=== PATIENT | female | born 1985 | race Caucasian/White ===

== ENCOUNTER 2016-05-06 00:20 | Emergency (ER) | payer OTHER ==
[~2016-05-06] VITALS: Ht 170.2 cm; Wt 68.0 kg
[2016-05-06 00:42] VITALS: BP 120/68
--- NOTE | 2016-05-06 00:49 | PHYS DOC ---
Adult General Chief Complaint Chief Complaint: FINGER INJURY HPI HPI Patient is a 31 year old female who presents with left pinky finger injury, patient states she was putting away an x-ray machine at her job when the machine rolled over her left pinky finger. Review of Systems Review of Systems Constitutional: Denies fever or chills [] Musculoskeletal: Left pinky finger injury Integument: Denies rash or skin lesions [] Neurologic: Denies headache, focal weakness or sensory changes [] Endocrine: Denies polyuria or polydipsia [] Current Medications Current Medications Current Medications Medications (Trade) Dose Ordered Sig/Zohaib Start Time Stop Time Status Last Admin Dose Admin Diphtheria/ Tetanus/Acell Pertussis (Boostrix) 0.5 ml ONCE ONCE 05/06/16 00:45 05/06/16 00:46 UNV Physical Exam Physical Exam Constitutional: Well developed, well nourished, no acute distress, non-toxic appearance. [] Skin: Warm, dry, no erythema, no rash. [] Back: No tenderness, no CVA tenderness. [] Extremities: Distal end of the left pinky finger with small amount of superficial laceration around the nailbed. The nail is still attached. Tenderness on palpation of the tip of the left pinky finger. Bruises noted on the ventral aspect distal end of the left pinky finger. Full range of motion to the left pinky finger MIP PIP and DIP joints with adequate flexion and extension of the finger at the MIP PIP and DIP joints. Adequate ulnar sensation to the left pinky finger. Cap refill less than 2 seconds the left pinky finger. Sensation intact to the left pinky finger. +2 left radial pulse Neurologic: Alert and oriented X 3, normal motor function, normal sensory function, no focal deficits noted. [] Psychologic: Affect normal, judgement normal, mood normal. [] EKG EKG [] Radiology/Procedures Radiology/Procedures [] Course & Med Decision Making Course & Med Decision Making Pertinent Labs and Imaging studies reviewed. (See chart for details) Patient is in the ED with left pinky finger injury. X-rays of the left pinky finger interpreted by Dr. Park are negative for any acute findings. Patient was given tetanus in the ED. Neosporin applied to the superficial lacerations on the finger. Finger splint was applied to the left pinky finger by the ED RN, neurovascular exam done by me post splint application is normal, cap refill less than 2 seconds. Ice elevation encouraged. Follow-up with ortho in one week. Dragon Disclaimer Dragon Disclaimer This electronic medical record was generated, in whole or in part, using a voice recognition dictation system. Departure Departure Impression: Primary Impression: Finger contusion Additional Impression: Finger laceration Disposition: 01 HOME, SELF-CARE Condition: STABLE Referrals: RAZIA MURILLO MD See him in one week if pain continues Patient Instructions: Contusion Additional Instructions: You were seen for finger contusion. Please apply ice and elevate the extremity. Apply Neosporin to the laceration site. Keep them clean and dry. Monitor the for signs and symptoms of infection including increased redness warmth or odor drainage from the area or if you develop a fever and come to the ED. Follow-up with the provided orthopedic doctor your own doctor in one week. Take over-the- counter pain relievers as needed. Problem Qualifiers Primary Impression: Finger contusion Encounter type: initial encounter Finger: little finger Damage to nail status: without damage Laterality: left Qualified Code: S60.052A - Contusion of left little finger without damage to nail, initial encounter Additional Impression: Finger laceration Encounter type: initial encounter Qualified Code: S61.219A - Laceration without foreign body of unspecified finger without damage to nail, initial encounter CLIVE ANDERSON APRN May 06, 2016 00:49
[2016-05-06] MEDS ORDERED: NEOMY/BACITR/POLYMYXIN OINT PACKET. TP ONE (01:00)
[2016-05-06] MEDS ORDERED: DIPHTH,PERTUSS(ACELL),TET TOX 0.5 ML DISP.SYRIN. VAX IM ONE (01:00)
--- NOTE | 2016-05-06 07:34 | RAD ---
Indication: Finger pain on the left. Time of exam 0036 hours. Multiple views of the left fifth finger were obtained. The alignment is normal. The joint spaces are well-maintained. No fractures are seen. The soft tissues are unremarkable. Impression: No acute feature identified.
== END 2016-05-06 01:00 | disposition home or self-care (01) ==
LOC: ER 00:20
DX: S61.217A Laceration without foreign body of left little finger without damage to nail, initial encounter (principal); W31.89XA Contact with other specified machinery, initial encounter; Y93.89 Activity, other specified; Y92.69 Other specified industrial and construction area as the place of occurrence of the external cause; Y99.8 Other external cause status
CPT/HCPCS: 29130; 73140; 99284-25